=== PATIENT | male | born 1965 | race Caucasian/White ===

== ENCOUNTER → 2020-12-15 | Outpatient (CLI) | payer OTHER ==
[~2020-12-15] MED LIST: FIORINAL 50-321 EACH PO; LOPRESSOR 25 MG25 MG PO; NORVASC10 MG PO; ZOFRAN4 MG PO
== END ==
LOC: EXRD 13:17
DX: M25.562 Pain in left knee (principal)
CPT/HCPCS: 73560

== ENCOUNTER → 2020-12-26 | Outpatient (CLI) | payer OTHER | LOC: HEART 5 09:16 | DX: R06.2 Wheezing (principal) | CPT/HCPCS: 94010 ==

== ENCOUNTER → 2021-01-07 | Outpatient (CLI) | payer OTHER | LOC: EXRD 09:56 | DX: R74.8 Abnormal levels of other serum enzymes (principal); K76.0 Fatty (change of) liver, not elsewhere classified | CPT/HCPCS: 76705 ==

== ENCOUNTER 2021-10-11 19:55 | Emergency (ER) | payer OTHER ==
[2021-10-11 20:19] LABS: HEMOGLOBIN 18.6 gm/dl (14.0-17.5); RED BLOOD COUNT 5.57 M/UL (4.20-5.50); WHITE BLOOD COUNT 13.6 K/UL (4.5-11.0)
[2021-10-11 20:44] LABS: BUN/CREATININE RATIO 13 (0-10)
== END 2021-10-12 02:00 | disposition home or self-care (01) ==
LOC: ER1 19:55
PROVIDERS: Family Medicine
DX: R07.9 Chest pain, unspecified (principal); I10 Essential (primary) hypertension; F17.210 Nicotine dependence, cigarettes, uncomplicated
CPT/HCPCS: 71045; 80053; 82550; 82553; 83874; 84484; 85025; 93005; 99281